=== PATIENT | female | born 2000 | race Caucasian/White ===

== ENCOUNTER 2023-03-12 12:33 | Emergency (ER) | payer MEDICAID, SELFPAY ==
[2023-03-12 12:36] VITALS: BP 116/68; PULSE 75; RESP 18; TEMP 36.8; O2SAT 99; BMI 42.4
== END 2023-03-12 13:23 | disposition left against medical advice (07) ==
LOC: ED 13:30
PROVIDERS: PCP Pediatrics
DX: Z53.21 Procedure and treatment not carried out due to patient leaving prior to being seen by health care provider (principal)